=== PATIENT | female | born 1950 | race Caucasian/White ===

== ENCOUNTER 2018-12-20 15:20 | Inpatient (IN) ==
[2018-12-20] MEDS ORDERED: HYDROmorphone 2 MG/1 ML VIAL IV STA (15:48)
[2018-12-20] MEDS ORDERED: ONDANSETRON 4 MG/2 ML VIAL IV STA (15:48)
[2018-12-20] MEDS ORDERED: SODIUM CHLORIDE 0.9% 500 ML IV STA (15:48)
[2018-12-20 16:03] LABS: Basophils % 0.3 % (0.0-0.8); Eosinophils # 0.1 10*3/uL (0.0-0.87); Eosinophils % 0.7 % (0.00-10.9); Hematocrit 46.4 VOL% (35.7-47.0); Hemoglobin 14.9 GM/DL (12.0-16.0); Immature Granulocytes % 0.4 %; Immature Granulocytes Absolute 0.03 #; Lymphocytes # 1.5 10*3/uL (1.4-4.0); Lymphocytes % 21.3 % (21.3-54.2); Mean Corpuscular HGB Conc 32.1 GM/DL (32-36); Mean Platelet Volume 10.6 FL (9.6-12.0); Monocytes % 5.6 % (1.7-12.7); Neutrophils % 71.7 % (38.7-73.9); Platelet Count 392 T/CUMM (130-400); Red Blood Count 5.46 MC/CUMM (3.8-5.5); Red Cell Distribution Width 13.8 % (9.3-17.3); White Blood Count 7.2 T/CUMM (4-12)
[2018-12-20 16:31] LABS: Albumin 3.2 G/DL (3.4-5.0); Bilirubin,Total 0.9 MG/DL (0.2-1.0); Calcium 9.2 MG/DL (8.5-10.1); Osmolality,Calculated 277.3 MOS/KG (273-304); Total Protein 7.2 G/DL (6.4-8.3)
[2018-12-20] MEDS ORDERED: NICOTINE 21 MG/24 HR PATCH TRANSDERM PRN (18:34)
[2018-12-20] MEDS ORDERED: ACETAMINOPHEN 325 MG TABLET PO PRN (18:34)
[2018-12-20] MEDS: SODIUM CHLORIDE 0.9% 1,000 ML IV SCH (19:26)
[2018-12-20] MEDS: ONDANSETRON 4 MG/2 ML VIAL IV PRN (19:26)
[2018-12-20 19:45] LABS: Apearance,Urine Slightly Hazy (Clear); Bacteria,Urine Occasional /HPF (Few); Bilirubin,Urine Negative (Negative); Blood, Urine Small mg/dL (Negative); Glucose,Urine (UA) Negative (Negative); Ketones,Urine 80 mg/dL (Negative); Mucus,Urine Occasional /LPF (Occasional); Nitrite,Urine Negative (Negative); Protein,Urine Negative; RBC,Urine 21 /HPF (0-4); Squamous Epithelial Cell,Urine Occasional /HPF (0-10); Urine Color Yellow (Yellow); Urine Specific Gravity > 1.060 (1.001-1.035); Urine Urobilinogen < 2.0 EU/DL (0.2-1.0)
[2018-12-20] MEDS: ENOXAPARIN 40 MG/0.4 ML SYRINGE SUBCUT SCH (21:15)
[2018-12-20] MEDS ORDERED: ONDANSETRON 4 MG/2 ML VIAL IV ONE (21:29)
[2018-12-20] MEDS ORDERED: PROMETHAZINE 25 MG/1 ML VIAL IM PRN (21:29)
[2018-12-20] MEDS: BACLOFEN 10 MG TABLET PO SCH (21:34)
[2018-12-20] MEDS: GABAPENTIN 600 MG TABLET PO SCH (21:34)
[2018-12-20] MEDS: GEMFIBROZIL 600 MG TABLET PO SCH (21:34)
[2018-12-21] MEDS: ONDANSETRON 4 MG/2 ML VIAL IV PRN (00:13)
[2018-12-21] MEDS: SODIUM CHLORIDE 0.9% 1,000 ML IV SCH ×3 (04:20→22:03)
[2018-12-21] MEDS: PROMETHAZINE 25 MG/1 ML VIAL IM PRN ×2 (04:30→11:32)
[2018-12-21] MEDS: LEVOTHYROXINE 100 MCG TABLET PO SCH (05:28)
[2018-12-21 06:08] LABS: Basophils % 0.3 % (0.0-0.8); Eosinophils # 0.1 10*3/uL (0.0-0.87); Eosinophils % 1.1 % (0.00-10.9); Hematocrit 41.9 VOL% (35.7-47.0); Hemoglobin 12.8 GM/DL (12.0-16.0); Immature Granulocytes % 0.3 %; Immature Granulocytes Absolute 0.02 #; Lymphocytes # 1.9 10*3/uL (1.4-4.0); Mean Corpuscular HGB Conc 30.5 GM/DL (32-36); Mean Corpuscular Volume 86.4 FL (87-102); Mean Platelet Volume 11.9 FL (9.6-12.0); Monocytes % 7.5 % (1.7-12.7); Neutrophils % 61.8 % (38.7-73.9); Platelet Count 227 T/CUMM (130-400); Red Blood Count 4.85 MC/CUMM (3.8-5.5); Red Cell Distribution Width 13.9 % (9.3-17.3); White Blood Count 6.4 T/CUMM (4-12)
[2018-12-21 06:52] LABS: Albumin 2.8 G/DL (3.4-5.0); Bilirubin,Total 0.6 MG/DL (0.2-1.0); Osmolality,Calculated 280.1 MOS/KG (273-304); Risk Ratio 5.84; Thyroid Stimulating Hormone 0.016 uIU/ml (0.358-3.74); Total Protein 6.9 G/DL (6.4-8.3); VLDL CHOLESTEROL 31.8 MG/DL
[2018-12-21] MEDS: GEMFIBROZIL 600 MG TABLET PO SCH ×2 (09:37→22:04)
[2018-12-21] MEDS: GABAPENTIN 600 MG TABLET PO SCH ×3 (09:37→22:04)
[2018-12-21] MEDS: PANTOPRAZOLE 40 MG TABLET PO SCH (09:37)
[2018-12-21] MEDS: ASPIRIN EC 81 MG TABLET PO SCH (09:37)
[2018-12-21] MEDS: BACLOFEN 10 MG TABLET PO SCH ×3 (09:37→22:04)
[2018-12-21] MEDS: POTASSIUM CHLORIDE RIDER 10 MEQ in PREMIX 1 EACH IV PRN ×2 (09:38→12:53)
[2018-12-21] MEDS: POTASSIUM CHLORIDE 20 MEQ TABLET PO PRN ×3 (15:11→22:04)
[2018-12-21] MEDS: ENOXAPARIN 40 MG/0.4 ML SYRINGE SUBCUT SCH (22:04)
[2018-12-22] MEDS: ALPRAZolam 0.5 MG TABLET PO PRN ×2 (00:24→21:47)
[2018-12-22] MEDS: POTASSIUM CHLORIDE 20 MEQ TABLET PO PRN (04:14)
[2018-12-22 05:34] LABS: Basophils % 0.5 % (0.0-0.8); Eosinophils # 0.5 10*3/uL (0.0-0.87); Eosinophils % 5.4 % (0.00-10.9); Hematocrit 38.2 VOL% (35.7-47.0); Hemoglobin 11.9 GM/DL (12.0-16.0); Immature Granulocytes % 0.2 %; Immature Granulocytes Absolute 0.02 #; Lymphocytes # 4.4 10*3/uL (1.4-4.0); Lymphocytes % 49.3 % (21.3-54.2); Mean Corpuscular HGB Conc 31.2 GM/DL (32-36); Mean Corpuscular Volume 87.8 FL (87-102); Mean Platelet Volume 10.9 FL (9.6-12.0); Monocytes % 7.2 % (1.7-12.7); Neutrophils % 37.4 % (38.7-73.9); Platelet Count 380 T/CUMM (130-400); Red Blood Count 4.35 MC/CUMM (3.8-5.5); Red Cell Distribution Width 13.7 % (9.3-17.3); White Blood Count 8.9 T/CUMM (4-12)
[2018-12-22 05:57] LABS: Eosinophils 8 % (0-10); Hypochromasia 1+; Lymphocytes 41 % (20-55); Platelet Estimate Adequate; Segmented Neutrophils 48 % (50-85); Total Cells Counted 100
[2018-12-22 05:58] LABS: Atypical Lymphocytes Few
[2018-12-22 06:17] LABS: Alanine Aminotransferase 11 U/L (13-56); Albumin 2.6 G/DL (3.4-5.0); Alkaline Phosphatase 99 U/L (45-117); Aspartate Amino Transferase 15 U/L (0-37); Bilirubin,Total < 0.39 MG/DL (0.2-1.0); Blood Urea Nitrogen 6 MG/DL (7-18); Calcium 8.5 MG/DL (8.5-10.1); Glucose 126 MG/DL (74-106); Osmolality,Calculated 280.3 MOS/KG (273-304); Total Protein 6.1 G/DL (6.4-8.3)
[2018-12-22] MEDS: LEVOTHYROXINE 100 MCG TABLET PO SCH (06:30)
[2018-12-22] MEDS: SODIUM CHLORIDE 0.9% 1,000 ML IV SCH ×3 (06:32→22:00)
[2018-12-22 06:39] LABS: Cancer Antigen 19-9 2.7 U/ML (0-37)
[2018-12-22] MEDS: GEMFIBROZIL 600 MG TABLET PO SCH ×2 (09:09→21:48)
[2018-12-22] MEDS: ASPIRIN EC 81 MG TABLET PO SCH (09:10)
[2018-12-22] MEDS: GABAPENTIN 600 MG TABLET PO SCH ×3 (09:10→21:47)
[2018-12-22] MEDS: PANTOPRAZOLE 40 MG TABLET PO SCH (09:10)
[2018-12-22] MEDS: BACLOFEN 10 MG TABLET PO SCH ×3 (09:14→21:48)
[2018-12-22] MEDS: ENOXAPARIN 40 MG/0.4 ML SYRINGE SUBCUT SCH ×2 (21:48→21:59)
[2018-12-23] MEDS: SODIUM CHLORIDE 0.9% 1,000 ML IV SCH ×2 (03:01→14:19)
[2018-12-23] MEDS: LEVOTHYROXINE 100 MCG TABLET PO SCH (06:35)
[2018-12-23 07:47] LABS: Alanine Aminotransferase 12 U/L (13-56); Albumin 2.7 G/DL (3.4-5.0); Alkaline Phosphatase 122 U/L (45-117); Aspartate Amino Transferase 15 U/L (0-37); Bilirubin,Total < 0.39 MG/DL (0.2-1.0); Blood Urea Nitrogen 5 MG/DL (7-18); Calcium 8.6 MG/DL (8.5-10.1); Glucose 103 MG/DL (74-106); Osmolality,Calculated 279.1 MOS/KG (273-304); Total Protein 6.5 G/DL (6.4-8.3)
[2018-12-23] MEDS ORDERED: LACTATED RINGERS 1,000 ML IV SCH (08:30)
[2018-12-23 08:36] LABS: Hematocrit 43.6 VOL% (35.7-47.0); Hemoglobin 13.9 GM/DL (12.0-16.0); Mean Corpuscular HGB Conc 31.9 GM/DL (32-36); Mean Corpuscular Volume 84.8 FL (87-102); Red Blood Count 5.14 MC/CUMM (3.8-5.5); White Blood Count 8.5 T/CUMM (4-12)
[2018-12-23 08:37] LABS: Basophils % 0.2 % (0.0-0.8); Eosinophils % 6.3 % (0.00-10.9); Immature Granulocytes % 0.4 %; Lymphocytes % 26.9 % (21.3-54.2); Mean Platelet Volume 10.7 FL (9.6-12.0); Monocytes % 5.8 % (1.7-12.7); Neutrophils % 60.4 % (38.7-73.9); Platelet Count 437 T/CUMM (130-400); Red Cell Distribution Width 13.5 % (9.3-17.3)
[2018-12-23] MEDS: GEMFIBROZIL 600 MG TABLET PO SCH (14:18)
[2018-12-23] MEDS: GABAPENTIN 600 MG TABLET PO SCH (14:18)
[2018-12-23] MEDS: PANTOPRAZOLE 40 MG TABLET PO SCH (14:18)
[2018-12-23] MEDS: ASPIRIN EC 81 MG TABLET PO SCH (14:18)
[2018-12-23] MEDS: BACLOFEN 10 MG TABLET PO SCH (14:18)
[2018-12-23 14:21] VITALS: BP 174/96
== END 2018-12-23 15:22 | disposition home or self-care (01) | DRG 392 ==
LOC: N.ED 15:20 → SUATTDRO 18:34 → N.EDINP 18:34 → N.5E 19:20
PROVIDERS: ADMIT Internal Medicine; ATTEND Hospitalist